=== PATIENT | male | born 1945 | race Caucasian/White ===

== ENCOUNTER 2017-03-16 20:18 | Emergency (ER) | payer OTHER ==
[~2017-03-16] VITALS: Ht 182.9 cm; Wt 125.7 kg
[~2017-03-16 20:18] MED LIST: ALLEGRA ALLERG180 MG PO; AMLODIPINE BESYL5 MG PO; B-12500 MC1 SL; DAILY VALUE1 EACH PO; ICY HOT CREAM35.4 G1 TP; LISINOPRIL5 MG PO; NITROSTAT0.4 MG SL; OMEGA-31000 M1 PO; TRANXENE T-TAB7.5 MG PO; VISINE15 ML BOTH EYES; VITAMIN C500 M1 PO; VITAMIN D1000 INTUN PO
[2017-03-16 20:58] LABS: ADD MIUA? NO; BILIRUBIN NEGATIVE; BLOOD NEGATIVE; COLOR YELLOW ((YELLOW)); GLUCOSE (STRIP) NEGATIVE; KETONES NEGATIVE; LEUKOCYTES NEGATIVE; NITRITE NEGATIVE; PROTEIN (STRIP) NEGATIVE; SPECIFIC GRAVITY 1.013 (1.000-1.030); UCUL ADDED? NO; UROBILINOGEN 0.2 MG/DL (0.2-1.0)
[2017-03-16 21:51] VITALS: BP 142/92
== END 2017-03-16 21:52 | disposition home or self-care (01) ==
LOC: EME 20:18 → RME 20:18
PROVIDERS: Nurse Practitioner Family
DX: K40.90 Unilateral inguinal hernia, without obstruction or gangrene, not specified as recurrent (principal); Z87.891 Personal history of nicotine dependence
CPT/HCPCS: 76870; 81003; 99281; 99283